=== PATIENT | female | born 2000 | race Caucasian/White ===

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

== ENCOUNTER 2019-01-26 00:18 | Emergency (ER) | payer OTHER ==
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
[2019-01-26 01:51] VITALS: BP 114/69
== END 2019-01-26 01:50 | disposition home or self-care (01) ==
LOC: ED 00:18
DX: T71.191A Asphyxiation due to mechanical threat to breathing due to other causes, accidental, initial encounter (principal); Y93.85 Activity, choking game; R42 Dizziness and giddiness
CPT/HCPCS: 99282